=== PATIENT | male | born 1960 | race Caucasian/White ===

== ENCOUNTER 2018-08-20 10:10 | Emergency (ER) | payer OTHER ==
--- NOTE | 2018-08-20 10:13 | ED Physician Documentation ---
General Adult - HISTORIAN Historian: patient - HPI Stated Complaint: hand lac Chief Complaint: Laceration/Recheck/Suture Onset: minutes (30) Timing: still present Severity: mild Further Comments: yes (He was cutting open his mattress and he cut his hand with the knife. He is not UTD on tetanus . No numbness. or decreased ROM) Last known Well Code/Unknown Code: Unknown - ROS CONST: no problems - PAST HX Past History: none Immunizations: tetanus Allergies/Adverse Reactions: Allergies Allergy/AdvReac Type Severity Reaction Status Date / Time No Known Allergies Allergy Verified 08/20/18 10:41 Home Medications: Ambulatory Orders Medication Instructions Recorded Atorvastatin Calcium 10 mg PO D 08/20/18 - SOCIAL HX Smoking History: non-smoker Alcohol Use: none Drug Use: none - FAMILY HX Family History: No - VITAL SIGNS Vital Signs: Vital Signs Temp Pulse Resp BP Pulse Ox 98.0 F 64 16 128/79 98 08/20/18 11:06 08/20/18 11:06 08/20/18 11:06 08/20/18 11:06 08/20/18 11:06 - REVIEWED ASSESSMENTS Nursing Assessment Reviewed: Yes Vitals Reviewed: Yes Procedures Wound Location: upper extremity (left hand 2nd digit ) Wound's Depth, Shape: superficial, flap Wound Explored: no foreign body removed Anesthesia: 1% Lidocaine (5 cc ) Suture Size/Type: 4:0 Number of Sutures: 5 Layer Closure?: No ED Results Lab/Radiology - Orders Orders: ED Orders Category Date Time Status Apply/change dressing NOW Care 08/20/18 10:38 Active Cleanse with NS and Chlorhexid 1T Care 08/20/18 10:15 Active Triple Antibiotic Ointment 1T Care 08/20/18 10:38 Active Diph,Pertuss(Acell),Tet Vac/Pf [Adacel] Med 08/20/18 10:29 Discontinued 0.5 ml IM .ONCE ONE Lidocaine 1% 5ml(IM or SUTURE) [Xylocaine] Med 08/20/18 10:37 Discontinued 50 mg .ROUTE .STK-MED ONE Lidocaine 1% 5ml(IM or SUTURE) [Xylocaine] Med 08/20/18 10:38 Discontinued 50 mg IJ NOW ONE General Adult Physical Exam - PHYSICAL EXAM GENERAL APPEARANCE: no distress EENT: eye inspection normal NECK: normal inspection RESPIRATORY: no resp distress, chest non-tender, breath sounds normal CVS: reg rate & rhythm ABDOMEN: soft, no distension SKIN: warm/dry, other (left hand 2nd digit lac approx 2 cm with a flap / Cap refill + FROM + Pulses + ) EXTREMITIES: non-tender NEURO: oriented X3 Discharge Clincal Impression: Laceration of left hand Qualifiers: Encounter type: initial encounter Foreign body presence: without foreign body Qualified Code(s): S61.412A - Laceration without foreign body of left hand, initial encounter Referrals: Primary Doctor,No [Primary Care Provider] - 2 Days Comments: 1. Keep area clean and dry 2. Sutures removed in 10days 3. Notify PCP of any s/sx of infection - redness swelling or drainage 4. Return to ER for any concerns Condition: Stable Disposition: 01 HOME, SELF-CARE Decision to Admit: NO Date of Decison to Admit: 08/20/18 Decision Time: 11:01
[2018-08-20] MEDS ORDERED: DIPH,PERTUSS(ACELL),TET VAC/PF 0.5 ML DISP.SYRIN IM ONE (10:29)
[2018-08-20] MEDS ORDERED: LIDOCAINE HCL 1% PF 50MG/5ML AMP (IM/SUTURE/PAIN CLINIC) ONE (10:37)
[2018-08-20] MEDS ORDERED: LIDOCAINE HCL 1% PF 50MG/5ML AMP (IM/SUTURE/PAIN CLINIC) IJ ONE (10:38)
[2018-08-20 11:14] VITALS: BP 128/79
== END 2018-08-20 11:06 | disposition home or self-care (01) ==
LOC: ED 10:10
DX: S61.211A Laceration without foreign body of left index finger without damage to nail, initial encounter (principal); W26.0XXA Contact with knife, initial encounter; Y93.89 Activity, other specified
CPT/HCPCS: 12001; 90471; 90715; 99282